=== PATIENT | female | born 1980 | race Caucasian/White ===

== ENCOUNTER 2017-01-03 15:41 | Emergency (ER) | payer OTHER, SELFPAY ==
[2017-01-03] MEDS ORDERED: Sodium Chloride 0.9% 10 ML Syringe FLUSH PRN (16:49)
[2017-01-03] MEDS ORDERED: Sodium Chloride 0.9% 1,000 ML IV ONE (16:49)
[2017-01-03] MEDS ORDERED: Sodium Chloride 0.9% 2.5 ML Syringe FLUSH PRN (16:49)
[2017-01-03] MEDS ORDERED: Ketorolac 30 MG/ML SDV IVPUSH ONE (16:49)
--- NOTE | 2017-01-03 16:52 | EDM.PDOC ---
ED HPI GENERAL MEDICAL PROBLEM - General Chief Complaint: Flank Pain Stated Complaint: PAIN TO LEFT SIDE ABDOMEN AND BACK Time Seen by Provider: 01/03/17 16:43 - History of Present Illness INITIAL COMMENTS - FREE TEXT/NARRATIVE: HISTORY AND PHYSICAL: History of present illness: The patient is a healthy 36-year-old female who presents with complaints of sudden onset of left lower flank pain that radiates to the left lower quadrant of her abdomen 2 hours ago. The patient says that the pain is constant and has not taken anything for it. The pain was Was associated with some nausea which is now gone but no vomiting or diarrhea. She's had no dysuria frequency or hematuria and no GI or history. Her only history is an ovarian cyst that was monitored and dissipated prior to her last . Patient denies currently in the last regular period was December 19. The patient has not had any recent fever chills chest pain or shortness of breath and has had no GI complaints and has been eating and drinking normally. Prior to these events the patient had a normal morning and afternoon. The patient does tell me that she usually gets discomfort when she ovulates and she is concerned it might be that but she says that it's never been this uncomfortable. The patient describes the pain as a sharp dull deep pain Review of systems: As per history of present illness and below otherwise all systems reviewed and negative. Past medical history: As per history of present illness and as reviewed below otherwise noncontributory. Surgical history: As per history of present illness and as reviewed below otherwise noncontributory. Social history: No reported history of drug or alcohol abuse. Family history: As per history of present illness and as reviewed below otherwise noncontributory. Physical exam: Gen.: Well-developed well-nourished female who moves easily in the ED without any distress. Vital signs have been reviewed by me. HEENT: Atraumatic, normocephalic, negative for conjunctival pallor or scleral icterus, mucous membranes moist, throat clear, neck supple, nontender, trachea midline. Lungs: Clear to auscultation, breath sounds equal bilaterally, chest nontender. Heart: S1S2, regular rate and rhythm no overt murmurs Abdomen: Soft, nondistended, there is tenderness at palpation of the right upper right mid and right lower quadrants without rebound or guarding Negative for masses or hepatosplenomegaly. Negative for costovertebral tenderness. Pelvis: Stable nontender. Genitourinary: Deferred. Rectal: Deferred. Extremities: Atraumatic, negative for cords or calf pain. Neurovascular unremarkable. Neuro: Awake, alert, oriented. Cranial nerves II through XII unremarkable. Cerebellum unremarkable. Motor and sensory unremarkable throughout. Exam nonfocal. Diagnostics: CBC CMP UA UCG urine culture if indicated CT scan of the abdomen and pelvis Therapeutics: IV fluids Toradol Patient is aware of all testing results including all the CT scan findings, incidental one gallstone and incidental mesenteric inflammatory changes. I've cautioned her that this small kidney stone within the kidney could try to pass which would increase her pain and things that she should return for. I have advised her for close follow-up with her family practice physician in our clinic in the next several days and she may need to see her urologist the pain persists. I advised her on hydration and will give her some tramadol to use if [id number] Motrin does not work. She Is comfortable with this care plan. Impression: Left kidney stone/renal colic stable Definitive disposition and diagnosis as appropriate pending reevaluation and review of above. Left Flank Pain Score (Numeric/FACES): 10 - Related Data Allergies Allergy/AdvReac Type Severity Reaction Status Date / Time No Known Allergies Allergy Verified 01/03/17 16:13 Home Meds: Home Meds . 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: Psychiatric History: Reports: Depression - Infectious Disease History Infectious Disease History: Reports: Chicken Pox - Past Surgical History HEENT Surgical History: Reports: Oral Surgery Social & Family History - Family History Family Medical History: Noncontributory - Tobacco Use Smoking Status *Q: Never Smoker Second Hand Smoke Exposure: No - Caffeine Use Caffeine Use: Reports: Coffee Other Caffeine Use: quit using coffee the last 3 days - Recreational Drug Use Recreational Drug Use: No - Sexual History Sexual History: Reports: Same Sex Partner, Vaginal [place] - Living Situation & Occupation Living situation: Reports: ED ROS GENERAL - Review of Systems Review Of Systems: ROS reveals no pertinent complaints other than HPI. ED EXAM, GENERAL - Physical Exam Exam: See Below (See dictation) Course - Vital Signs Last Recorded V/S: Last Vital Signs Temp 36.7 C 01/03/17 16:10 Pulse 77 01/03/17 16:10 Resp 16 01/03/17 16:10 BP 140/81 01/03/17 16:10 Pulse Ox 99 01/03/17 16:10 - Orders/Labs/Meds Orders: Active Orders 24 hr Category Date Time Status Abdomen Pelvis wo Cont [CT] Stat Exams 01/03/17 16:49 Taken Sodium Chloride 0.9% [Saline Flush] Med 01/03/17 16:49 Active 10 ml FLUSH ASDIRECTED PRN Sodium Chloride 0.9% [Saline Flush] Med 01/03/17 16:49 Active 2.5 ml FLUSH ASDIRECTED PRN Saline Lock Insert [OM.PC] Stat Oth 01/03/17 16:49 Ordered Medication Orders Sodium Chloride (Saline Flush) 10 ml FLUSH ASDIRECTED PRN PRN Reason: Keep Vein Open Last Admin: 01/03/17 17:15 Dose: 10 ml Sodium Chloride (Saline Flush) 2.5 ml FLUSH ASDIRECTED PRN PRN Reason: Keep Vein Open Last Admin: 01/03/17 17:15 Dose: 2.5 ml Labs: Laboratory Tests 01/03/17 01/03/17 01/03/17 Range/Units 16:16 16:16 17:12 WBC 9.39 (4.0-11.0) K/uL RBC 4.21 L (4.30-5.90) M/uL Hgb 12.7 (12.0-16.0) g/dL Hct 37.2 (36.0-46.0) % MCV 88.4 (80.0-98.0) fL MCH 30.2 (27.0-32.0) pg MCHC 34.1 (31.0-37.0) g/dL RDW Std Deviation 43.3 (28.0-62.0) fl RDW Coeff of Tamiko 14 (11.0-15.0) % Plt Count 297 (150-400) K/uL MPV 10.70 (7.40-12.00) fL Neut % (Auto) 58.5 (48.0-80.0) % Lymph % (Auto) 32.5 (16.0-40.0) % [place] % (Auto) 6.9 (0.0-15.0) % Eos % (Auto) 1.8 (0.0-7.0) % Baso % (Auto) 0.3 (0.0-1.5) % Neut # (Auto) 5.5 (1.4-5.7) K/uL Lymph # (Auto) 3.1 H (0.6-2.4) K/uL [place] # (Auto) 0.7 (0.0-0.8) K/uL Eos # (Auto) 0.2 (0.0-0.7) K/uL Baso # (Auto) 0.0 (0.0-0.1) K/uL Nucleated RBC % 0.0 /100WBC Nucleated RBCs # 0 K/uL Sodium (136-146) mmol/L Potassium (3.5-5.1) mmol/L Chloride (98-110) mmol/L Carbon Dioxide (21-31) mmol/L BUN (6.0-23.0) mg/dL Creatinine (0.6-1.5) mg/dL Est Cr Clr Drug Dosing mL/min Estimated GFR (MDRD) ml/min Glucose (60-110) mg/dL Calcium (8.8-10.8) mg/dL Total Bilirubin (0.1-1.5) mg/dL AST (5-40) IU/L ALT (8-54) IU/L Alkaline Phosphatase (40-150) Total Protein (6.0-8.0) g/dL Albumin (3.5-5.0) g/dL Globulin (2.0-3.5) g/dL Albumin/Globulin Ratio (1.3-2.8) Urine Color YELLOW Urine Appearance CLEAR Urine pH 5.5 (5.0-8.0) Ur Specific [place] >= 1.030 (1.001-1.035) Urine Protein NEGATIVE (NEGATIVE) mg/dL Urine Glucose (UA) NEGATIVE (NEGATIVE) mg/dL Urine Ketones NEGATIVE (NEGATIVE) mg/dL Urine Occult Blood TRACE-LYSED (NEGATIVE) Urine Nitrite NEGATIVE (NEGATIVE) Urine Bilirubin NEGATIVE (NEGATIVE) Urine Urobilinogen 0.2 (<2.0) EU/dL Ur Leukocyte Esterase NEGATIVE (NEGATIVE) Urine RBC 0-1 (0-2/HPF) Urine WBC 0-2 (0-5/HPF) Ur Epithelial Cells FEW (NONE-FEW) Amorphous Sediment FEW (NEGATIVE) Urine Bacteria RARE (NEGATIVE) Urine HCG, Qual NEGATIVE (NEGATIVE) 01/03/17 Range/Units 17:12 WBC (4.0-11.0) K/uL RBC (4.30-5.90) M/uL Hgb (12.0-16.0) g/dL Hct (36.0-46.0) % MCV (80.0-98.0) fL MCH (27.0-32.0) pg MCHC (31.0-37.0) g/dL RDW Std Deviation (28.0-62.0) fl RDW Coeff of Tamiko (11.0-15.0) % Plt Count (150-400) K/uL MPV (7.40-12.00) fL Neut % (Auto) (48.0-80.0) % Lymph % (Auto) (16.0-40.0) % [place] % (Auto) (0.0-15.0) % Eos % (Auto) (0.0-7.0) % Baso % (Auto) (0.0-1.5) % Neut # (Auto) (1.4-5.7) K/uL Lymph # (Auto) (0.6-2.4) K/uL [place] # (Auto) (0.0-0.8) K/uL Eos # (Auto) (0.0-0.7) K/uL Baso # (Auto) (0.0-0.1) K/uL Nucleated RBC % /100WBC Nucleated RBCs # K/uL Sodium 139 (136-146) mmol/L Potassium 3.6 (3.5-5.1) mmol/L Chloride 107 (98-110) mmol/L Carbon Dioxide 24 (21-31) mmol/L BUN 18 (6.0-23.0) mg/dL Creatinine 0.8 (0.6-1.5) mg/dL Est Cr Clr Drug Dosing 89.16 mL/min Estimated GFR (MDRD) > 60.0 ml/min Glucose 110 (60-110) mg/dL Calcium 9.5 (8.8-10.8) mg/dL Total Bilirubin 1.0 (0.1-1.5) mg/dL AST 18 (5-40) IU/L ALT 20 (8-54) IU/L Alkaline Phosphatase 70 (40-150) Total Protein 7.4 (6.0-8.0) g/dL Albumin 4.4 (3.5-5.0) g/dL Globulin 3.0 (2.0-3.5) g/dL Albumin/Globulin Ratio 1.5 (1.3-2.8) Urine Color Urine Appearance Urine pH (5.0-8.0) Ur Specific [place] (1.001-1.035) Urine Protein (NEGATIVE) mg/dL Urine Glucose (UA) (NEGATIVE) mg/dL Urine Ketones (NEGATIVE) mg/dL Urine Occult Blood (NEGATIVE) Urine Nitrite (NEGATIVE) Urine Bilirubin (NEGATIVE) Urine Urobilinogen (<2.0) EU/dL Ur Leukocyte Esterase (NEGATIVE) Urine RBC (0-2/HPF) Urine WBC (0-5/HPF) Ur Epithelial Cells (NONE-FEW) Amorphous Sediment (NEGATIVE) Urine Bacteria (NEGATIVE) Urine HCG, Qual (NEGATIVE) Meds: Medications Generic Name Dose Route Start Last Admin Trade Name Freq PRN Reason Stop Dose Admin Sodium Chloride 10 ml 01/03/17 16:49 01/03/17 17:15 Saline Flush FLUSH 10 ml ASDIRECTED PRN Administration Keep Vein Open Sodium Chloride 2.5 ml 01/03/17 16:49 01/03/17 17:15 Saline Flush FLUSH 2.5 ml ASDIRECTED PRN Administration Keep Vein Open Discontinued Medications Generic Name Dose Route Start Last Admin Trade Name Freq PRN Reason Stop Dose Admin Sodium Chloride 1,000 mls @ 999 mls/hr 01/03/17 16:49 01/03/17 17:15 Normal Saline IV 01/03/17 17:49 999 mls/hr STAT ONE Administration Ketorolac Tromethamine 30 mg 01/03/17 16:49 01/03/17 17:15 Toradol IVPUSH 01/03/17 16:50 30 mg ONETIME ONE Administration Departure - Departure Time of Disposition: 18:49 Disposition: Home, Self-Care 01 Condition: Good Clinical Impression: Renal colic on left side - Discharge Information Referrals: Shahriar Duarte MD [Primary Care Provider] - Forms: ED Department Discharge Additional Instructions: The following information is given to patients seen in the emergency department who are being discharged to home. This information is to outline your options for follow-up care. We provide all patients seen in our emergency department with a follow-up referral. The need for follow-up, as well as the timing and circumstances, are variable depending upon the specifics of your emergency department visit. If you don't have a primary care physician on staff, we will provide you with a referral. We always advise you to contact your personal physician following an emergency department visit to inform them of the circumstance of the visit and for follow-up with them and/or the need for any referrals to a consulting specialist. The emergency department will also refer you to a specialist when appropriate. This referral assures that you have the opportunity for followup care with a specialist. All of these measure are taken in an effort to provide you with optimal care, which includes your followup. Under all circumstances we always encourage you to contact your private physician who remains a resource for coordinating your care. When calling for followup care, please make the office aware that this follow-up is from your recent emergency room visit. If for any reason you are refused follow-up, please contact the [facility] emergency department at and ask to speak to the emergency department charge nurse. [facility] Primary care- Internal Medicine and Family [address] [address] Push hydration and use [id number] Motrin or ibuprofen for pain. Please use tramadol you have been prescribed as you choose and as you need. Please call and follow with her primary care physician for further evaluation of these complaints and return to ER as needed as discussed. - My Orders Last 24 Hours: My Active Orders 01/03/17 16:49 Abdomen Pelvis wo Cont [CT] Stat Sodium Chloride 0.9% [Saline Flush] 10 ml FLUSH ASDIRECTED PRN Sodium Chloride 0.9% [Saline Flush] 2.5 ml FLUSH ASDIRECTED PRN Saline Lock Insert [OM.PC] Stat - Assessment/Plan Last 24 Hours: My Active Orders 01/03/17 16:49 Abdomen Pelvis wo Cont [CT] Stat Sodium Chloride 0.9% [Saline Flush] 10 ml FLUSH ASDIRECTED PRN Sodium Chloride 0.9% [Saline Flush] 2.5 ml FLUSH ASDIRECTED PRN Saline Lock Insert [OM.PC] Stat
[2017-01-03 17:47] LABS: CHLORIDE,CL 107 mmol/L (98-110); SODIUM,NA 139 mmol/L (136-146)
[2017-01-03 19:03] VITALS: BP 124/78
--- NOTE | 2017-01-04 16:36 | CT ---
EXAM DATE: 01/03/17 PATIENT'S AGE: 36 Patient: LAINE CONTRERAS Facility: [place], [place] Site . Site : [id number] Study: CT Abdomen/Pelvis [id number]/6/2017 6:09:34 PM Ordering Physician: Lila Shrestha Final Report: INDICATION: Flank pain. TECHNIQUE: CT abdomen and pelvis without contrast. COMPARISON: None available FINDINGS: Lower chest: Unremarkable. Liver: Unremarkable. Spleen: Unremarkable. Pancreas: Unremarkable. Gallbladder and bile ducts: An apparent small density within the gallbladder on image 56 concerning for cholelithiasis. Adrenal glands: Unremarkable. Kidneys: No hydronephrosis. A 3 millimeter nonobstructive left renal calcification. No discrete ureteral calcifications. GI tract: Unremarkable. Appendix is normal. Vascular structures: Unremarkable. Lymph nodes: No abnormally enlarged lymph nodes. Miscellaneous: Trace fluid in the cul-de-sac. No free air. Mildly increased hazy attenuation in the central mesenteric fat, nonspecific, which could represent mild sclerosing mesenteritis. Pelvic Organs: Unremarkable. Bones: Slight lumbar scoliosis. IMPRESSION: No obstructive uropathy. A 3 millimeter nonobstructive left renal calcification. No discrete ureteral calcifications. Mildly increased hazy attenuation in the central mesenteric fat is nonspecific and could represent mild sclerosing mesenteritis. Suspected cholelithiasis. Dictated by Sanya Leos MD @ 01/03/2017 6:40:41 PM Dictated by: Sanya Leos MD @ 01/03/2017 18:40:47 (Electronic Signature) Report Signed by Proxy. [facility] HOSPITAL[facility]
== END 2017-01-03 19:01 | disposition home or self-care (01) ==
LOC: MW.ED 15:41
DX: N20.0 Calculus of kidney (principal); F32.9 Major depressive disorder, single episode, unspecified
CPT/HCPCS: 74176; 80053; 81001; 81025; 85025; 96361; 96374; 99284; J1885; J7040; 99283

== ENCOUNTER 2018-07-23 16:13 | Observation (INO) | payer BC, OTHER ==
[2018-07-23] MEDS ORDERED: Sodium Chloride 0.9% 1,000 ML IV ONE (16:32)
[2018-07-23] MEDS ORDERED: Ondansetron 4 MG/2 ML SDV IVPUSH ONE ×2 (16:32→18:03)
[2018-07-23] MEDS ORDERED: Morphine 2 MG/ML Syringe IVPUSH ONE (16:32)
--- NOTE | 2018-07-23 16:35 | EDM.PDOC ---
ED HPI GENERAL MEDICAL PROBLEM - General Chief Complaint: Flank Pain Stated Complaint: 15WKS PG LOWER BACK LANCE Time Seen by Provider: 07/23/18 16:26 - History of Present Illness INITIAL COMMENTS - FREE TEXT/NARRATIVE: HISTORY AND PHYSICAL: History of present illness: Patient's a 38-year-old white female who is approximately 15 weeks presents with a concern of acute left flank pain with associated nausea and vomiting she did have a similar episode in 2017 and was diagnosed with urolithiasis. She denies fever chills she denies vaginal bleeding discharge Review of systems: As per history of present illness and below otherwise all systems reviewed and negative. Past medical history: As per history of present illness and as reviewed below otherwise noncontributory. Surgical history: As per history of present illness and as reviewed below otherwise noncontributory. Social history: No reported history of drug or alcohol abuse. Family history: As per history of present illness and as reviewed below otherwise noncontributory. Physical exam: HEENT: Atraumatic, normocephalic, pupils reactive, negative for conjunctival pallor or scleral icterus, mucous membranes moist, throat clear, neck supple, nontender, trachea midline. Lungs: Clear to auscultation, breath sounds equal bilaterally, chest nontender. Heart: S1S2, regular, negative for clicks, rubs, or JVD. Abdomen: SoGravid uterus noted consistent with dates nontenderNegative for masses or hepatosplenomegaly. left-sidedostovertebral tenderness. Pelvis: Stable nontender. Genitourinary: Deferred. Rectal: Deferred. Extremities: Atraumatic, negative for cords or calf pain. Neurovascular unremarkable. Neuro: Awake, alert, oriented. Cranial nerves II through XII unremarkable. Cerebellum unremarkable. Motor and sensory unremarkable throughout. Exam nonfocal. Diagnostics: CBC CMP UA second trimester ultrasound retroperitoneal ultrasound Therapeutics: Saline 1 L bolus morphine sulfate 2 mg IV Zofran 4 mg IV Impression: #1 second trimester intrauterine #2 acute left flank pain Definitive disposition and diagnosis as appropriate pending reevaluation and review of above. - Related Data Allergies Allergy/AdvReac Type Severity Reaction Status Date / Time No Known Allergies Allergy Verified 07/23/18 16:35 Home Meds: Home Meds . 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: Psychiatric History: Reports: Depression - Infectious Disease History Infectious Disease History: Reports: Chicken Pox - Past Surgical History HEENT Surgical History: Reports: Oral Surgery Social & Family History - Family History Family Medical History: Noncontributory - Caffeine Use Caffeine Use: Reports: Coffee Other Caffeine Use: quit using coffee the last 3 days - Sexual History Sexual History: Reports: Same Sex Partner, Vaginal [place] - Living Situation & Occupation Living situation: Reports: ED ROS GENERAL - Review of Systems Review Of Systems: ROS reveals no pertinent complaints other than HPI. ED EXAM, GENERAL - Physical Exam Exam: See Below (See dictation) Course - Vital Signs Last Recorded V/S: Last Vital Signs Temp 36.4 C 07/23/18 19:29 Pulse 79 07/23/18 19:29 Resp 22 H 07/23/18 19:29 BP 143/85 H 07/23/18 19:29 Pulse Ox 98 07/23/18 19:29 - Orders/Labs/Meds Orders: Active Orders 24 hr Category Date Time Status Patient Status [ADT] Stat ADT 07/23/18 20:00 Active Retroperitoneal Ltd [US] Stat Exams 07/23/18 16:31 Taken CULTURE URINE [RM] Stat Lab 07/23/18 17:54 Received cefTRIAXone [Rocephin] 1 gm Med 07/23/18 19:58 Active Sodium Chloride 0.9% [Normal Saline] 50 ml IV ONETIME Medication Orders Ceftriaxone Sodium 1 gm/ (Sodium Chloride) 50 mls @ 200 mls/hr IV ONETIME ONE Stop: 07/23/18 20:12 Labs: Laboratory Tests 07/23/18 07/23/18 07/23/18 Range/Units 16:42 16:42 17:54 WBC 8.58 (4.0-11.0) K/uL RBC 3.87 L (4.30-5.90) M/uL Hgb 11.6 L (12.0-16.0) g/dL Hct 33.7 L (36.0-46.0) % MCV 87.1 (80.0-98.0) fL MCH 30.0 (27.0-32.0) pg MCHC 34.4 (31.0-37.0) g/dL RDW Std Deviation 42.0 (28.0-62.0) fl RDW Coeff of Tamiko 13 (11.0-15.0) % Plt Count 235 (150-400) K/uL MPV 9.80 (7.40-12.00) fL Neut % (Auto) 51.7 (48.0-80.0) % Lymph % (Auto) 40.1 H (16.0-40.0) % [place] % (Auto) 5.5 (0.0-15.0) % Eos % (Auto) 2.6 (0.0-7.0) % Baso % (Auto) 0.1 (0.0-1.5) % Neut # (Auto) 4.4 (1.4-5.7) K/uL Lymph # (Auto) 3.4 H (0.6-2.4) K/uL [place] # (Auto) 0.5 (0.0-0.8) K/uL Eos # (Auto) 0.2 (0.0-0.7) K/uL Baso # (Auto) 0.0 (0.0-0.1) K/uL Nucleated RBC % 0.0 /100WBC Nucleated RBCs # 0 K/uL Sodium 140 (136-145) mmol/L Potassium 3.8 (3.5-5.1) mmol/L Chloride 105 (98-107) mmol/L Carbon Dioxide 24.8 (21.0-32.0) mmol/L BUN 13 (7.0-18.0) mg/dL Creatinine 0.7 (0.6-1.0) mg/dL Est Cr Clr Drug Dosing TNP Estimated GFR (MDRD) > 60.0 ml/min Glucose 96 (74-106) mg/dL Calcium 9.5 (8.5-10.1) mg/dL Total Bilirubin 0.3 (0.2-1.0) mg/dL AST 18 (15-37) IU/L ALT 32 (14-63) IU/L Alkaline Phosphatase 55 (46-116) U/L Total Protein 7.5 (6.4-8.2) g/dL Albumin 3.2 L (3.4-5.0) g/dL Globulin 4.3 H (2.6-4.0) g/dL Albumin/Globulin Ratio 0.7 L (0.9-1.6) Urine Color YELLOW Urine Appearance CLEAR Urine pH 5.5 (5.0-8.0) Ur Specific [place] >= 1.030 (1.001-1.035) Urine Protein TRACE H (NEGATIVE) mg/dL Urine Glucose (UA) NEGATIVE (NEGATIVE) mg/dL Urine Ketones NEGATIVE (NEGATIVE) mg/dL Urine Occult Blood MODERATE H (NEGATIVE) Urine Nitrite NEGATIVE (NEGATIVE) Urine Bilirubin NEGATIVE (NEGATIVE) Urine Urobilinogen 0.2 (<2.0) EU/dL Ur Leukocyte Esterase MODERATE H (NEGATIVE) Urine RBC 8-16 (0-2/HPF) Urine WBC 6-12 (0-5/HPF) Ur Epithelial Cells FEW (NONE-FEW) Amorphous Sediment FEW (NEGATIVE) Urine Bacteria FEW (NEGATIVE) Urine Mucus FEW (NONE-MOD) Meds: Medications Generic Name Dose Route Start Last Admin Trade Name Freq PRN Reason Stop Dose Admin Ceftriaxone Sodium 1 gm/ 50 mls @ 200 mls/hr 07/23/18 19:58 Sodium Chloride IV 07/23/18 20:12 ONETIME ONE Discontinued Medications Generic Name Dose Route Start Last Admin Trade Name Freq PRN Reason Stop Dose Admin Sodium Chloride 1,000 mls @ 999 mls/hr 07/23/18 16:32 07/23/18 17:26 Normal Saline IV 07/23/18 17:32 999 mls/hr STAT ONE Administration Ceftriaxone Sodium 1 gm/ 50 mls @ 100 mls/hr 07/23/18 19:52 Sodium Chloride IV 07/23/18 20:21 ONETIME ONE Morphine Sulfate 2 mg 07/23/18 16:32 07/23/18 17:28 Morphine IVPUSH 07/23/18 16:33 2 mg ONETIME ONE Administration Ondansetron HCl 4 mg 07/23/18 16:32 07/23/18 17:25 Zofran IVPUSH 07/23/18 16:33 4 mg ONETIME ONE Administration Ondansetron HCl 4 mg 07/23/18 18:03 07/23/18 18:08 Zofran IVPUSH 07/23/18 18:04 4 mg ONETIME ONE Administration Departure - Departure Time of Disposition: 20:02 Disposition: Refer to Observation Condition: Good Clinical Impression: Flank pain, Second trimester , UTI, Urinary tract infectious disease - Discharge Information Referrals: Shahriar Duarte MD [Primary Care Provider] - Forms: ED Department Discharge - My Orders Last 24 Hours: My Active Orders 07/23/18 16:31 Retroperitoneal Ltd [US] Stat 07/23/18 17:54 CULTURE URINE [RM] Stat 07/23/18 19:58 cefTRIAXone [Rocephin] 1 gm Sodium Chloride 0.9% [Normal Saline] 50 ml IV ONETIME 07/23/18 20:00 Patient Status [ADT] Stat - Assessment/Plan Last 24 Hours: My Active Orders 07/23/18 16:31 Retroperitoneal Ltd [US] Stat 07/23/18 17:54 CULTURE URINE [RM] Stat 07/23/18 19:58 cefTRIAXone [Rocephin] 1 gm Sodium Chloride 0.9% [Normal Saline] 50 ml IV ONETIME 07/23/18 20:00 Patient Status [ADT] Stat
[2018-07-23 17:13] LABS: CHLORIDE,CL 105 mmol/L (98-107); SODIUM,NA 140 mmol/L (136-145)
--- NOTE | 2018-07-23 18:10 | US ---
INDICATION: Left back and flank pain, nausea and vomiting, approximately 15 weeks TECHNIQUE: Ultrasound OB pelvis transabdominal. Real-time portillo-scale and color Doppler imaging of the fetus and maternal kidneys was performed. COMPARISON: None FINDINGS: Sonographic imaging demonstrates a single living intrauterine gestation. Fetus demonstrates a regular cardiac rate of 147 beats per minute. Fetus has a cephalic orientation. The placenta lies anterior without evidence of placenta previa. Amniotic fluid volume appears normal. Cervical length is 3.4 cm. The composite ultrasound gestational age is calculated at 16 weeks 2 days with an estimated sonographic due date of January 05, 2019. The estimated weight is 147 grams which lies at the 80.5 %. The following biometric measurements were obtained: Biparietal diameter: 3.4 cm/16 weeks 4 days Head circumference: 12.3 cm/16 weeks 1 day Abdominal circumference: 10.4 cm/16 weeks 3 days Femur length: 2.0 cm/16 weeks 0 days Evaluation of both kidneys demonstrates normal renal size, no hydronephrosis or renal stone. IMPRESSION: 1.Single viable intrauterine . Gestational age is calculated at 16 weeks 2 days with estimated due date of January 05, 2019. 2.No hydronephrosis or renal stone. Dictated by Nena Patton MD @ Jul 23 2018 6:01PM Signed by Dr. Nena Patton @ Jul 23 2018 6:08PM
[2018-07-23] MEDS ORDERED: cefTRIAXone 1 GM in Sodium Chloride 0.9% 50 ML IV ONE ×2 (19:52→19:58)
[2018-07-23] MEDS ORDERED: cefTRIAXone 1 GM in Premix Bag 1 BAG IV ONE (20:04)
[2018-07-23] MEDS ORDERED: Ondansetron 4 MG/2 ML SDV IVPUSH PRN (21:11)
[2018-07-23] MEDS ORDERED: Sodium Chloride 0.9% 1,000 ML IV SCH (21:15)
[2018-07-23] MEDS: Morphine 4 MG/ML Syringe IVPUSH PRN (22:30)
[2018-07-24] MEDS: Morphine 4 MG/ML Syringe IVPUSH PRN (01:07)
--- NOTE | 2018-07-24 08:57 | PCM.HP ---
H&P History of Present Illness - General Date of Service: 07/24/18 Admit Problem/Dx: Admission Diagnosis/Problem Admission Diagnosis/Problem Flank pain 38 yo EDC 01/10/2019 15 5/7wks came in last evening due to severe left side flank pain. Admit for ops overnight for pain mngmt Source of Information: Patient History Limitations: Reports: No Limitations - History of Present Illness Onset of Symptoms: Reports: Sudden Symptom Onset Date: 07/23/18 Location: Reports: Back Quality: Reports: Stabbing, Throbbing Improves with: Reports: None Worsens with: Reports: None Associated Symptoms: Reports: No Other Symptoms Right Flank Pain Score (Numeric/FACES): 5 - Related Data Allergies/Adverse Reactions: Allergies Allergy/AdvReac Type Severity Reaction Status Date / Time No Known Allergies Allergy Verified 07/23/18 16:35 Home Medications: Home Meds . 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: Psychiatric History: Reports: Depression - Infectious Disease History Infectious Disease History: Reports: Chicken Pox - Past Surgical History HEENT Surgical History: Reports: Oral Surgery Social & Family History - Family History Family Medical History: Noncontributory - Tobacco Use Smoking Status *Q: Former Smoker Years of Tobacco use: 2 Used Tobacco, but Quit: Yes Month/Year Tobacco Last Used: 2008 Second Hand Smoke Exposure: No - Caffeine Use Caffeine Use: Reports: Coffee Other Caffeine Use: quit using coffee the last 3 days - Recreational Drug Use Recreational Drug Use: No - Sexual History Sexual History: Reports: Same Sex Partner, Vaginal [place] - Living Situation & Occupation Living situation: Reports: H&P Review of Systems - Review of Systems: Review Of Systems: See Below General: Reports: No Symptoms. Denies: Fever HEENT: Reports: No Symptoms Pulmonary: Reports: No Symptoms Cardiovascular: Reports: No Symptoms Gastrointestinal: Reports: No Symptoms Genitourinary: Reports: No Symptoms, Flank Pain, Other (difficulty urinating) Musculoskeletal: Reports: No Symptoms Skin: Reports: No Symptoms, Rash Psychiatric: Reports: No Symptoms Neurological: Reports: No Symptoms Hematologic/Lymphatic: Reports: No Symptoms Immunologic: Reports: No Symptoms Exam - Exam Exam: See Below - Vital Signs Vital Signs: Last Vital Signs Temp 36.6 C 07/24/18 04:52 Pulse 86 07/24/18 04:52 Resp 18 07/24/18 04:52 BP 128/84 07/24/18 04:52 Pulse Ox 98 07/24/18 04:52 Weight: 89.448 kg - Exam General: Alert, Oriented, Cooperative, Mild Distress HEENT: Hearing Intact Lungs: Clear to Auscultation, Normal Respiratory Effort Cardiovascular: Regular Rate, Regular Rhythm, Normal S1, Normal S2 (Female) Exam: Deferred Rectal (Female) Exam: Deferred Back Exam: Normal Inspection, Full Range of Motion, CVA Tenderness (L). No: CVA Tenderness (R) Extremities: Normal Inspection, Normal Range of Motion, Non-Tender, No Pedal Edema, Normal Capillary Refill Skin: Warm, Dry, Intact Neurological: Cranial Nerves Intact, Reflexes Equal Bilateral, Normal Speech, Normal Tone, Sensation Intact Neuro Extensive - Mental Status: Alert, Oriented x3, Normal Mood/Affect, Normal Cognition, Memory Intact Psychiatric: Alert, Normal Affect, Normal Mood - Patient Data Lab Results Last 24 hrs: Laboratory Results - last 24 hr 07/23/18 07/23/18 07/23/18 Range/Units 16:42 16:42 17:54 WBC 8.58 (4.0-11.0) K/uL RBC 3.87 L (4.30-5.90) M/uL Hgb 11.6 L (12.0-16.0) g/dL Hct 33.7 L (36.0-46.0) % MCV 87.1 (80.0-98.0) fL MCH 30.0 (27.0-32.0) pg MCHC 34.4 (31.0-37.0) g/dL RDW Std Deviation 42.0 (28.0-62.0) fl RDW Coeff of Tamiko 13 (11.0-15.0) % Plt Count 235 (150-400) K/uL MPV 9.80 (7.40-12.00) fL Neut % (Auto) 51.7 (48.0-80.0) % Lymph % (Auto) 40.1 H (16.0-40.0) % [place] % (Auto) 5.5 (0.0-15.0) % Eos % (Auto) 2.6 (0.0-7.0) % Baso % (Auto) 0.1 (0.0-1.5) % Neut # (Auto) 4.4 (1.4-5.7) K/uL Lymph # (Auto) 3.4 H (0.6-2.4) K/uL [place] # (Auto) 0.5 (0.0-0.8) K/uL Eos # (Auto) 0.2 (0.0-0.7) K/uL Baso # (Auto) 0.0 (0.0-0.1) K/uL Nucleated RBC % 0.0 /100WBC Nucleated RBCs # 0 K/uL Sodium 140 (136-145) mmol/L Potassium 3.8 (3.5-5.1) mmol/L Chloride 105 (98-107) mmol/L Carbon Dioxide 24.8 (21.0-32.0) mmol/L BUN 13 (7.0-18.0) mg/dL Creatinine 0.7 (0.6-1.0) mg/dL Est Cr Clr Drug Dosing TNP Estimated GFR (MDRD) > 60.0 ml/min Glucose 96 (74-106) mg/dL Calcium 9.5 (8.5-10.1) mg/dL Total Bilirubin 0.3 (0.2-1.0) mg/dL AST 18 (15-37) IU/L ALT 32 (14-63) IU/L Alkaline Phosphatase 55 (46-116) U/L Total Protein 7.5 (6.4-8.2) g/dL Albumin 3.2 L (3.4-5.0) g/dL Globulin 4.3 H (2.6-4.0) g/dL Albumin/Globulin Ratio 0.7 L (0.9-1.6) Urine Color YELLOW Urine Appearance CLEAR Urine pH 5.5 (5.0-8.0) Ur Specific [place] >= 1.030 (1.001-1.035) Urine Protein TRACE H (NEGATIVE) mg/dL Urine Glucose (UA) NEGATIVE (NEGATIVE) mg/dL Urine Ketones NEGATIVE (NEGATIVE) mg/dL Urine Occult Blood MODERATE H (NEGATIVE) Urine Nitrite NEGATIVE (NEGATIVE) Urine Bilirubin NEGATIVE (NEGATIVE) Urine Urobilinogen 0.2 (<2.0) EU/dL Ur Leukocyte Esterase MODERATE H (NEGATIVE) Urine RBC 8-16 (0-2/HPF) Urine WBC 6-12 (0-5/HPF) Ur Epithelial Cells FEW (NONE-FEW) Amorphous Sediment FEW (NEGATIVE) Urine Bacteria FEW (NEGATIVE) Urine Mucus FEW (NONE-MOD) Result Diagrams: 07/23/18 16:42 07/23/18 16:42 - Problem List (1) Flank pain SNOMED Code(s): 830356747 ICD Code: R10.9 - UNSPECIFIED ABDOMINAL PAIN Status: Acute Priority: High Current Visit: Yes (2) Second trimester SNOMED Code(s): 95115270 ICD Code: Z34.92 - ENCNTR FOR SUPRVSN OF NORMAL PREG, UNSP, SECOND TRIMESTER Status: Acute Priority: High Current Visit: Yes (3) Renal colic on left side SNOMED Code(s): 5189690 ICD Code: N23 - UNSPECIFIED RENAL COLIC Status: Acute Priority: High Current Visit: No Problem List Initiated/Reviewed/Updated: Yes Orders Last 24hrs: Active Orders 24 hr Category Date Time Status Patient Status [ADT] Stat ADT 07/23/18 20:00 Active Bedrest Bathroom Privileges [RC] ASDIRECTED Care 07/23/18 21:14 Active Regular Diet [DIET] Diet 07/24/18 Breakfast Active Retroperitoneal Ltd [US] Stat Exams 07/23/18 16:31 Taken CULTURE URINE [RM] Stat Lab 07/23/18 17:54 Received Morphine Sulfate Med 07/24/18 07:45 Active 4 mg IV Q2H PRN Ondansetron [Zofran] Med 07/23/18 21:11 Active 4 mg IVPUSH Q4H PRN Sodium Chloride 0.9% [Normal Saline] 1,000 ml Med 07/23/18 21:15 Active IV ASDIRECTED Medication Orders Sodium Chloride (Normal Saline) 1,000 mls @ 125 mls/hr IV ASDIRECTED WINSOME Last Admin: 07/23/18 22:40 Dose: 125 mls/hr Morphine Sulfate (Morphine Sulfate) 4 mg IV Q2H PRN PRN Reason: Pain Ondansetron HCl (Zofran) 4 mg IVPUSH Q4H PRN PRN Reason: Nausea/Vomiting Assessment/Plan Comment:: A: 38 yo EDC 01/10/2019 15 5/7wks came in last evening due to severe left side flank pain. Admit for ops overnight for pain mngmt P: doing much better this morning. Will discharge home. Follow up 08/06/18 or sooner if needed.
--- NOTE | 2018-07-24 08:59 | PCM.DCSUM1 ---
Discharge Summary - Hospital Course Free Text/Narrative:: Discharge home. Follow up 08/06/18 or sooner - Discharge Data Discharge Date: 07/24/18 Discharge Disposition: Home, Self-Care 01 Condition: Fair - Discharge Diagnosis/Problem(s) (1) Flank pain SNOMED Code(s): 395698716 ICD Code: R10.9 - UNSPECIFIED ABDOMINAL PAIN Status: Acute Priority: High Current Visit: Yes (2) Second trimester SNOMED Code(s): 85685224 ICD Code: Z34.92 - ENCNTR FOR SUPRVSN OF NORMAL PREG, UNSP, SECOND TRIMESTER Status: Acute Priority: High Current Visit: Yes (3) Renal colic on left side SNOMED Code(s): 4814753 ICD Code: N23 - UNSPECIFIED RENAL COLIC Status: Acute Priority: High Current Visit: No - Patient Instructions Diet: Usual Diet as Tolerated Activity: As Tolerated, Rest and Relax Today Driving: May Drive Today Showering/Bathing: May Shower Notify Provider of: Fever, Increased Pain, Nausea and/or Vomiting - Discharge Plan *PRESCRIPTION DRUG MONITORING PROGRAM REVIEWED*: Not Applicable *COPY OF PRESCRIPTION DRUG MONITORING REPORT IN PATIENT JORDY: Not Applicable Home Medications: Home Meds . [No Known Home Meds] 01/03/17 [History] Oxygen Therapy Mode: Room Air Forms: ED Department Discharge Referrals: Shahriar Duarte MD [Primary Care Provider] - - Discharge Summary/Plan Comment DC Time >30 min.: Yes - General Info Date of Service: 07/24/18 Admission Dx/Problem (Free Text: Admission Diagnosis/Problem Admission Diagnosis/Problem Flank pain 38 yo EDC 01/10/2019 15 5/7wks came in last evening due to severe left side flank pain. Admit for ops overnight for pain mngmt Functional Status: Reports: Pain Controlled, Tolerating Diet, Ambulating, Urinating - Review of Systems General: Reports: No Symptoms HEENT: Reports: No Symptoms Pulmonary: Reports: No Symptoms Cardiovascular: Reports: No Symptoms Gastrointestinal: Reports: No Symptoms Genitourinary: Reports: No Symptoms Musculoskeletal: Reports: No Symptoms Skin: Reports: No Symptoms Neurological: Reports: No Symptoms Psychiatric: Reports: No Symptoms - Patient Data Vitals - Most Recent: Last Vital Signs Temp 36.6 C 07/24/18 04:52 Pulse 86 07/24/18 04:52 Resp 18 07/24/18 04:52 BP 128/84 07/24/18 04:52 Pulse Ox 98 07/24/18 04:52 Weight - Most Recent: 89.448 kg I&O - Last 24 hours: Intake & Output 07/23/18 07/24/18 07/24/18 22:59 06:59 14:59 Intake Total 400 Output Total 500 Balance -100 Lab Results - Last 24 hrs: Laboratory Results - last 24 hr 07/23/18 07/23/18 07/23/18 Range/Units 16:42 16:42 17:54 WBC 8.58 (4.0-11.0) K/uL RBC 3.87 L (4.30-5.90) M/uL Hgb 11.6 L (12.0-16.0) g/dL Hct 33.7 L (36.0-46.0) % MCV 87.1 (80.0-98.0) fL MCH 30.0 (27.0-32.0) pg MCHC 34.4 (31.0-37.0) g/dL RDW Std Deviation 42.0 (28.0-62.0) fl RDW Coeff of Tamiko 13 (11.0-15.0) % Plt Count 235 (150-400) K/uL MPV 9.80 (7.40-12.00) fL Neut % (Auto) 51.7 (48.0-80.0) % Lymph % (Auto) 40.1 H (16.0-40.0) % Terry % (Auto) 5.5 (0.0-15.0) % Eos % (Auto) 2.6 (0.0-7.0) % Baso % (Auto) 0.1 (0.0-1.5) % Neut # (Auto) 4.4 (1.4-5.7) K/uL Lymph # (Auto) 3.4 H (0.6-2.4) K/uL Terry # (Auto) 0.5 (0.0-0.8) K/uL Eos # (Auto) 0.2 (0.0-0.7) K/uL Baso # (Auto) 0.0 (0.0-0.1) K/uL Nucleated RBC % 0.0 /100WBC Nucleated RBCs # 0 K/uL Sodium 140 (136-145) mmol/L Potassium 3.8 (3.5-5.1) mmol/L Chloride 105 (98-107) mmol/L Carbon Dioxide 24.8 (21.0-32.0) mmol/L BUN 13 (7.0-18.0) mg/dL Creatinine 0.7 (0.6-1.0) mg/dL Est Cr Clr Drug Dosing TNP Estimated GFR (MDRD) > 60.0 ml/min Glucose 96 (74-106) mg/dL Calcium 9.5 (8.5-10.1) mg/dL Total Bilirubin 0.3 (0.2-1.0) mg/dL AST 18 (15-37) IU/L ALT 32 (14-63) IU/L Alkaline Phosphatase 55 (46-116) U/L Total Protein 7.5 (6.4-8.2) g/dL Albumin 3.2 L (3.4-5.0) g/dL Globulin 4.3 H (2.6-4.0) g/dL Albumin/Globulin Ratio 0.7 L (0.9-1.6) Urine Color YELLOW Urine Appearance CLEAR Urine pH 5.5 (5.0-8.0) Ur Specific [place] >= 1.030 (1.001-1.035) Urine Protein TRACE H (NEGATIVE) mg/dL Urine Glucose (UA) NEGATIVE (NEGATIVE) mg/dL Urine Ketones NEGATIVE (NEGATIVE) mg/dL Urine Occult Blood MODERATE H (NEGATIVE) Urine Nitrite NEGATIVE (NEGATIVE) Urine Bilirubin NEGATIVE (NEGATIVE) Urine Urobilinogen 0.2 (<2.0) EU/dL Ur Leukocyte Esterase MODERATE H (NEGATIVE) Urine RBC 8-16 (0-2/HPF) Urine WBC 6-12 (0-5/HPF) Ur Epithelial Cells FEW (NONE-FEW) Amorphous Sediment FEW (NEGATIVE) Urine Bacteria FEW (NEGATIVE) Urine Mucus FEW (NONE-MOD) Med Orders - Current: Current Medications Sodium Chloride (Normal Saline) 1,000 mls @ 125 mls/hr IV ASDIRECTED [facility] Last Admin: 07/23/18 22:40 Dose: 125 mls/hr Morphine Sulfate (Morphine Sulfate) 4 mg IV Q2H PRN PRN Reason: Pain Ondansetron HCl (Zofran) 4 mg IVPUSH Q4H PRN PRN Reason: Nausea/Vomiting Discontinued Medications Sodium Chloride (Normal Saline) 1,000 mls @ 999 mls/hr IV STAT ONE Stop: 07/23/18 17:32 Last Admin: 07/23/18 17:26 Dose: 999 mls/hr Ceftriaxone Sodium 1 gm/ (Sodium Chloride) 50 mls @ 100 mls/hr IV ONETIME ONE Stop: 07/23/18 20:21 Last Admin: 07/23/18 20:19 Dose: Not Given Ceftriaxone Sodium/Dextrose 1 (gm/ Premix) 50 mls @ 100 mls/hr IV ONETIME ONE Stop: 07/23/18 20:33 Last Admin: 07/23/18 20:11 Dose: 100 mls/hr Morphine Sulfate (Morphine) 2 mg IVPUSH ONETIME ONE Stop: 07/23/18 16:33 Last Admin: 07/23/18 17:28 Dose: 2 mg Morphine Sulfate (Morphine) 4 mg IVPUSH Q2H PRN PRN Reason: Pain Last Admin: 07/24/18 01:07 Dose: 4 mg Ondansetron HCl (Zofran) 4 mg IVPUSH ONETIME ONE Stop: 07/23/18 16:33 Last Admin: 07/23/18 17:25 Dose: 4 mg Ondansetron HCl (Zofran) 4 mg IVPUSH ONETIME ONE Stop: 07/23/18 18:04 Last Admin: 07/23/18 18:08 Dose: 4 mg - Exam General: Reports: Alert, Oriented, Cooperative, No Acute Distress Lungs: Reports: Clear to Auscultation, Normal Respiratory Effort Cardiovascular: Reports: Regular Rate, Regular Rhythm, No Murmurs (Female) Exam: Deferred Rectal (Female) Exam: Deferred Back Exam: Reports: Normal Inspection, Full Range of Motion Skin: Reports: Warm, Dry, Intact Neurological: Reports: No New Focal Deficit, Normal Speech, Normal Tone, Strength Equal Bilateral Psy/Mental Status: Reports: Alert, Normal Affect, Normal Mood
[2018-07-24 09:32] VITALS: BP 125/70
--- NOTE | 2018-07-24 11:41 | US ---
EXAM DATE: 07/23/18 PATIENT'S AGE: 38 Patient: LAINE CONTRERAS Facility: [facility] Site . Site : [id number] Study: US-OB Pelvis [id number]/26/2019 5:22:56 PM Ordering Physician: Emmanuel Lovell Final Report: INDICATION: Left back and flank pain, nausea and vomiting, approximately 15 weeks TECHNIQUE: Ultrasound OB pelvis transabdominal. Real-time portillo-scale and color Doppler imaging of the fetus and maternal kidneys was performed. COMPARISON: None FINDINGS: Sonographic imaging demonstrates a single living intrauterine gestation. Fetus demonstrates a regular cardiac rate of 147 beats per minute. Fetus has a cephalic orientation. The placenta lies anterior without evidence of placenta previa. Amniotic fluid volume appears normal. Cervical length is 3.4 cm. The composite ultrasound gestational age is calculated at 16 weeks 2 days with an estimated sonographic due date of January 05, 2019. The estimated weight is 147 grams which lies at the 80.5 %. The following biometric measurements were obtained: Biparietal diameter: 3.4 cm/16 weeks 4 days Head circumference: 12.3 cm/16 weeks 1 day Abdominal circumference: 10.4 cm/16 weeks 3 days Femur length: 2.0 cm/16 weeks 0 days Evaluation of both kidneys demonstrates normal renal size, no hydronephrosis or renal stone. IMPRESSION: 1.Single viable intrauterine . Gestational age is calculated at 16 weeks 2 days with estimated due date of January 05, 2019. 2.No hydronephrosis or renal stone. Dictated by Nena Patton MD @ Jul 23 2018 6:01PM Signed by: Nena Patton MD @07/23/2018 6:08:44 PM (Electronic Signature) Report Signed by Proxy. JOYCE
== END 2018-07-24 10:23 | disposition home or self-care (01) ==
LOC: MW.ED 16:13 → MW.MS 20:13
PROVIDERS: ADMIT Obstetrics & Gynecology; ATTEND Obstetrics & Gynecology
DX: O26.832 Pregnancy related renal disease, second trimester (principal); N23 Unspecified renal colic; Z87.891 Personal history of nicotine dependence; Z3A.15 15 weeks gestation of pregnancy
CPT/HCPCS: 36415; 76775; 76815; 80053; 81001; 85025; 87086; 96361; 96365; 96375; 96376; 99285; G0378; J0696; J2270; J2405; J7040

== ENCOUNTER 2018-12-29 07:14 | Inpatient (IN) | payer BC ==
[2018-12-29] MEDS ORDERED: Carboprost Tromethamine 250 MCG/1 ML Amp IM PRN (09:59)
[2018-12-29] MEDS ORDERED: Sodium Chloride 0.9% 10 ML Syringe FLUSH PRN (09:59)
[2018-12-29] MEDS ORDERED: Tranexamic Acid 1,000 MG in Sodium Chloride 0.9% 100 ML IV PRN (09:59)
[2018-12-29] MEDS ORDERED: Nalbuphine 10 MG/1 ML Vial IVPUSH PRN (09:59)
[2018-12-29] MEDS ORDERED: Misoprostol 200 MCG Tab PO PRN (09:59)
[2018-12-29] MEDS ORDERED: Sodium Chloride 0.9% 2.5 ML Syringe FLUSH PRN (09:59)
[2018-12-29] MEDS ORDERED: Lidocaine 1% 50 ML MDV INJECT PRN (09:59)
[2018-12-29] MEDS ORDERED: Water For Irrigation,Sterile 1,000 ML Container IRR PRN (09:59)
[2018-12-29] MEDS ORDERED: Methylergonovine 0.2 MG/1 ML Amp IM PRN (09:59)
[2018-12-29] MEDS ORDERED: Sodium Chloride 0.9% 10 ML SDV IV PRN (09:59)
[2018-12-29] MEDS ORDERED: Oxytocin/0.9 % Sodium Chloride 30 UNIT/500 ML BAG IV SCH ×2 (10:00→21:15)
[2018-12-29] MEDS ORDERED: Misoprostol 25 MCG (1/4 of 100 MCG) Tab PO ONE ×2 (10:30→14:30)
--- NOTE | 2018-12-29 11:31 | PCM.LDHP ---
L&D History of Present Illness - General Date of Service: 12/29/18 Admit Problem/Dx: Patient Status Order with Admit Dx/Problem 12/29/18 07:20 Patient Status [ADT] Routine 12/29/18 09:59 Patient Status [ADT] Routine Admission Diagnosis/Problem Admission Diagnosis/Problem - planned 12/29/18 11:26 38yo EDC 01/10/2019 38 2/7wks, AMA 38yo, SROM at 0630, A+, RI, GBS neg. 12/29/18 11:34 Source of Information: Patient History Limitations: Reports: No Limitations - History of Present Illness Improves with: Reports: None Worsens with: Reports: None Associated Symptoms: Reports: N - Related Data Allergies/Adverse Reactions: Allergies Allergy/AdvReac Type Severity Reaction Status Date / Time No Known Allergies Allergy Verified 07/23/18 16:35 Home Medications: Home Meds Pnv No.95/Ferrous Fum/Folic AC [ Caplet] 1 tab PO DAILY 12/29/18 [ History] Past Medical History - Past Health History Medical/Surgical History: Denies Medical/Surgical History 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: , 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 Psychiatric History: Reports: Depression - Infectious Disease History Infectious Disease History: Reports: Chicken Pox - Past Surgical History HEENT Surgical History: Reports: Oral Surgery Social & Family History - Family History Family Medical History: Noncontributory - Caffeine Use Caffeine Use: Reports: Coffee Other Caffeine Use: quit using coffee the last 3 days - Sexual History Sexual History: Reports: Same Sex Partner, Vaginal [place] - Living Situation & Occupation Living situation: Reports: H&P Review of Systems - Review of Systems: Review Of Systems: See Below General: Reports: No Symptoms HEENT: Reports: No Symptoms Pulmonary: Reports: No Symptoms Cardiovascular: Reports: No Symptoms Gastrointestinal: Reports: No Symptoms Genitourinary: Reports: No Symptoms Musculoskeletal: Reports: No Symptoms Skin: Reports: No Symptoms Psychiatric: Reports: No Symptoms Neurological: Reports: No Symptoms Hematologic/Lymphatic: Reports: No Symptoms Immunologic: Reports: No Symptoms L&D Exam - Exam Exam: See Below - Vital Signs Weight: 95.708 kg - OB Specific Contraction Intensity: Mild Movement: Active Heart Tones: Present Heart Tones per Min: 130 Heart Rate (FHR) Variability: Moderate (6-25 bmp) (130) Presentation: Vertex - Lan Score Lan Score Cervix Position: Midposition Lan Score Consistency: Soft Lan Score Effacement: 51-70% Lan Score Infant's Station: -2 - Exam General: Alert, Oriented, Cooperative Lungs: Clear to Auscultation, Normal Respiratory Effort. No: Decreased Breath Sounds Cardiovascular: Regular Rate, Regular Rhythm, Normal S1, Normal S2 GI/Abdominal Exam: Soft, Non-Tender Rectal Exam: Deferred Genitourinary: Normal external exam, Cervical dilitation, Cervical fluid (SROM at 0600) Extremities: Normal Inspection, Normal Range of Motion, Non-Tender, No Pedal Edema Skin: Warm, Dry, Intact Neurological: Cranial Nerves Intact, Strength Equal Bilateral, Normal Gait, Normal Speech, Normal Tone, Sensation Intact Psychiatric: Alert, Normal Affect, Normal Mood - Patient Data Lab Results Last 24 hrs: Laboratory Results - last 24 hr 12/29/18 12/29/18 Range/Units 07:50 10:18 WBC 9.48 (4.0-11.0) K/uL RBC 3.93 L (4.30-5.90) M/uL Hgb 11.3 L (12.0-16.0) g/dL Hct 34.4 L (36.0-46.0) % MCV 87.5 (80.0-98.0) fL MCH 28.8 (27.0-32.0) pg MCHC 32.8 (31.0-37.0) g/dL RDW Std Deviation 49.0 (28.0-62.0) fl RDW Coeff of Tamiko 15 (11.0-15.0) % Plt Count 215 (150-400) K/uL MPV 11.30 (7.40-12.00) fL Nucleated RBC % 0.0 /100WBC Nucleated RBCs # 0 K/uL Membrane Rupture POSITIVE Result Diagrams: 12/29/18 10:18 - Problem List (1) Advanced maternal age during in third trimester SNOMED Code(s): 869323413, [id number] ICD Code: SWI3831 - Status: Acute Priority: High Current Visit: Yes Problem List Initiated/Reviewed/Updated: Yes Orders Last 24hrs: Active Orders 24 hr Category Date Time Status Patient Status [ADT] Routine ADT 12/29/18 09:59 Active May Shower [RC] ASDIRECTED Care 12/29/18 09:59 Active Notify Provider [RC] PRN Care 12/29/18 09:59 Active Up ad Radha [RC] ASDIRECTED Care 12/29/18 07:33 Active Vital Signs [RC] PER UNIT ROUTINE Care 12/29/18 07:33 Active TYPE AND SCREEN [BBK] Routine Lab 12/29/18 10:18 Received Carboprost Tromethamine [Hemabate DS] Med 12/29/18 09:59 Active 250 mcg IM ASDIRECTED PRN Lactated Ringers [Ringers, Lactated] 1,000 ml Med 12/29/18 10:00 Active IV ASDIRECTED Lidocaine 1% [Xylocaine 1%] Med 12/29/18 09:59 Active 50 ml INJECT ONETIME PRN Methylergonovine [Methergine] Med 12/29/18 09:59 Active 0.2 mg IM ASDIRECTED PRN Nalbuphine [Nubain] Med 12/29/18 09:59 Active 10 mg IVPUSH Q1H PRN Oxytocin/0.9 % Sodium Chloride [Oxytocin 30 Unit/500 ML Med 12/29/18 10:00 Active -NS] 30 unit in 500 ml IV TITRATE Sodium Chloride 0.9% [Normal Saline] Med 12/29/18 09:59 Active 10 ml IV ASDIRECTED PRN Sodium Chloride 0.9% [Saline Flush] Med 12/29/18 09:59 Active 10 ml FLUSH ASDIRECTED PRN Sodium Chloride 0.9% [Saline Flush] Med 12/29/18 09:59 Active 2.5 ml FLUSH ASDIRECTED PRN Tranexamic Acid [Cyklokapron] 1,000 mg Med 12/29/18 09:59 Active Sodium Chloride 0.9% [Normal Saline] 100 ml IV ONETIME Water For Irrigation,Sterile [Sterile Water for Med 12/29/18 09:59 Active Irrigation] 1,000 ml IRR ASDIRECTED PRN miSOPROStol [Cytotec] Med 12/29/18 09:59 Active 200 mcg PO ONETIME PRN Scalp Electrode [WOMSER] Per Unit Routine Oth 12/29/18 09:59 Ordered Peripheral IV Insertion Adult [OM.PC] Routine Oth 12/29/18 09:59 Ordered Resuscitation Status Routine Resus Stat 12/29/18 07:33 Ordered Medication Orders Carboprost Tromethamine (Hemabate Ds) 250 mcg IM ASDIRECTED PRN PRN Reason: Post Hemorrhage Tranexamic Acid 1,000 mg/ (Sodium Chloride) 110 mls @ 660 mls/hr IV ONETIME PRN PRN Reason: Bleeding Lactated Ringer's (Ringers, Lactated) 1,000 mls @ 150 mls/hr IV ASDIRECTED W[facility]OME Oxytocin/Sodium Chloride (Oxytocin 30 Unit/500 Ml-Ns) 30 unit in 500 mls @ 999 mls/hr IV TITRATE WINSOME Lidocaine HCl (Xylocaine 1%) 50 ml INJECT ONETIME PRN PRN Reason: Laceration repair Methylergonovine Maleate (Methergine) 0.2 mg IM ASDIRECTED PRN PRN Reason: Post Hemorrhage Misoprostol (Cytotec) 200 mcg PO ONETIME PRN PRN Reason: Post Hemorrhage Nalbuphine HCl (Nubain) 10 mg IVPUSH Q1H PRN PRN Reason: Pain (severe 7-10) Sodium Chloride (Saline Flush) 10 ml FLUSH ASDIRECTED PRN PRN Reason: Keep Vein Open Sodium Chloride (Saline Flush) 2.5 ml FLUSH ASDIRECTED PRN PRN Reason: Keep Vein Open Sodium Chloride (Normal Saline) 10 ml IV ASDIRECTED PRN PRN Reason: IV Use Sterile Water (Sterile Water For Irrigation) 1,000 ml IRR ASDIRECTED PRN PRN Reason: delivery Assessment/Plan Comment:: SROM A: 38yo EDC 01/10/2019 38 2/7wks, AMA 38yo, SROM at 0630, A+, RI, GBS neg VE 60/-2 clear fluid P: Admit, cytotec to pitocin, anticipate . Dr Patterson updated
[2018-12-29] MEDS ORDERED: Misoprostol 25 MCG (1/4 of 100 MCG) Tab VAG ONE (14:30)
[2018-12-29] MEDS ORDERED: fentaNYL 100 MCG/2 ML SDV ONE ×2 (19:49→23:46)
[2018-12-29] MEDS ORDERED: Ropivacaine HCl/PF 100 ML ONE (19:49)
[2018-12-29] MEDS: Lactated Ringers 1,000 ML IV SCH ×2 (20:05→21:57)
--- NOTE | 2018-12-29 20:09 | PCM.PREANE ---
Preanesthetic Assessment - Anesthesia/Transfusion/Family Hx Anesthesia History: Prior Anesthesia Without Reaction Family History of Anesthesia Reaction: Yes Transfusion History: No Prior Transfusion(s) - Physical Assessment NPO Status Date: 12/29/18 Height: 1.65 m Weight: 95.708 kg ASA Class: 1 Mental Status: Alert & Oriented x3 Dentition: Reports: Normal Dentition - Lab Values: Laboratory Last Values WBC 9.48 K/uL (4.0-11.0) 12/29/18 10:18 RBC 3.93 M/uL (4.30-5.90) L 12/29/18 10:18 Hgb 11.3 g/dL (12.0-16.0) L 12/29/18 10:18 Hct 34.4 % (36.0-46.0) L 12/29/18 10:18 MCV 87.5 fL (80.0-98.0) 12/29/18 10:18 MCH 28.8 pg (27.0-32.0) 12/29/18 10:18 MCHC 32.8 g/dL (31.0-37.0) 12/29/18 10:18 RDW Std Deviation 49.0 fl (28.0-62.0) 12/29/18 10:18 RDW Coeff of Tamiko 15 % (11.0-15.0) 12/29/18 10:18 Plt Count 215 K/uL (150-400) 12/29/18 10:18 MPV 11.30 fL (7.40-12.00) 12/29/18 10:18 Nucleated RBC % 0.0 /100WBC 12/29/18 10:18 Nucleated RBCs # 0 K/uL 12/29/18 10:18 Membrane Rupture POSITIVE 12/29/18 07:50 Blood Type A POSITIVE 12/29/18 10:18 Antibody Screen NEGATIVE 12/29/18 10:18 - Allergies Allergies/Adverse Reactions: Allergies Allergy/AdvReac Type Severity Reaction Status Date / Time No Known Allergies Allergy Verified 07/23/18 16:35 - Acknowledgements Anesthesia Type Planned: Epidural Pt an Appropriate Candidate for the Planned Anesthesia: Yes Alternatives and Risks of Anesthesia Discussed w Pt/Guardian: Yes Pt/Guardian Understands and Agrees with Anesthesia Plan: Yes PreAnesthesia Questionnaire - Past Health History Medical/Surgical History: Denies Medical/Surgical History 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 CONGRESSIONAL AIDE History: Reports: , Spontaneous Psychiatric History: Reports: Depression - Infectious Disease History Infectious Disease History: Reports: Chicken Pox - Past Surgical History HEENT Surgical History: Reports: Oral Surgery - SUBSTANCE USE Smoking Status *Q: Never Smoker Tobacco Use Within Last Twelve Months: No Second Hand Smoke Exposure: No Recreational Drug Use History: No - HOME MEDS Home Medications: Home Meds Pnv No.95/Ferrous Fum/Folic AC [ Caplet] 1 tab PO DAILY 12/29/18 [ History] - CURRENT (IN HOUSE) MEDS Current Meds: Current Medications Carboprost Tromethamine (Hemabate Ds) 250 mcg IM ASDIRECTED PRN PRN Reason: Post Hemorrhage Tranexamic Acid 1,000 mg/ (Sodium Chloride) 110 mls @ 660 mls/hr IV ONETIME PRN PRN Reason: Bleeding Lactated Ringer's (Ringers, Lactated) 1,000 mls @ 150 mls/hr IV ASDIRECTED WINSOME Oxytocin/Sodium Chloride (Oxytocin 30 Unit/500 Ml-Ns) 30 unit in 500 mls @ 999 mls/hr IV TITRATE WINSOME Lidocaine HCl (Xylocaine 1%) 50 ml INJECT ONETIME PRN PRN Reason: Laceration repair Methylergonovine Maleate (Methergine) 0.2 mg IM ASDIRECTED PRN PRN Reason: Post Hemorrhage Misoprostol (Cytotec) 200 mcg PO ONETIME PRN PRN Reason: Post Hemorrhage Nalbuphine HCl (Nubain) 10 mg IVPUSH Q1H PRN PRN Reason: Pain (severe 7-10) Sodium Chloride (Saline Flush) 10 ml FLUSH ASDIRECTED PRN PRN Reason: Keep Vein Open Sodium Chloride (Saline Flush) 2.5 ml FLUSH ASDIRECTED PRN PRN Reason: Keep Vein Open Sodium Chloride (Normal Saline) 10 ml IV ASDIRECTED PRN PRN Reason: IV Use Sterile Water (Sterile Water For Irrigation) 1,000 ml IRR ASDIRECTED PRN PRN Reason: delivery Discontinued Medications Fentanyl (Sublimaze) Confirm Administered Dose 100 mcg .ROUTE .STK-MED ONE Stop: 12/29/18 19:50 Ropivacaine (Naropin 0.2%) Confirm Administered Dose 100 mls @ as directed .ROUTE .STK-MED ONE Stop: 12/29/18 19:50 Misoprostol (Cytotec) 50 mcg PO ONETIME ONE Stop: 12/29/18 10:31 Last Admin: 12/29/18 10:27 Dose: 50 mcg Misoprostol (Cytotec) 25 mcg PO ONETIME ONE Stop: 12/29/18 14:31 Last Admin: 12/29/18 14:42 Dose: 25 mcg Misoprostol (Cytotec) 25 mcg VAG ONETIME ONE Stop: 12/29/18 14:31 Last Admin: 12/29/18 14:42 Dose: 25 mcg
--- NOTE | 2018-12-29 20:13 | PCM.PRNOTE ---
- Free Text/Narrative Note: Anes Note 1950 Patient requests epidural for L&D. Sitting position. Level L3-L4 midline approach. Epidural space easily achieved using MICHELLE technique. MICHELLE at 7 cm. Epidural cath threaded to 12 cm velvet and secured with clear adhesive dressing. 2000 Test 3 cc 1.5% lido with epi negative. Load 10 cc 0.2% ropivicaine with 1 mcg cc fentanyl in slow divided doses Pump started wtih same solution at 8 cc hr with 6 cc q 20 min prn bolus. Stephany well. Time with patient Darinel Fountain CRNA
--- NOTE | 2018-12-29 20:55 | PCM.PRNOTE ---
- Free Text/Narrative Note: Aness NOte Patient reports incomplete analgesia on left side. This has happened with 2 prior epidurals. I removed the epidural catheter eaily and complete. Under sterile technique a new epidural catheter was placed at level L2-L3, midline approach. Bet pre X3. Local 1% lido Epidural space easily achieved at 5 cm using MICHELLE technique. Epidural cath threaded 5 cm with ease. Sterile adhesive dressing applied. Test dose 2044. 3 cc 1.5% lido with epi negative. Load 10 cc 0.2% ropivicaine with 1 mcg cc fentanyl given in slow divided doses. Pumps restarted wtih same solution at 8 cc hr with 6 cc q 20 min prn bolus. Stephany well. Time with patient Darinel Fountain CRNA
[2018-12-29] MEDS ORDERED: Ondansetron 4 MG/2 ML SDV ONE (22:23)
[2018-12-29] MEDS ORDERED: Ondansetron 4 MG/2 ML SDV IVPUSH PRN (22:37)
--- NOTE | 2018-12-29 23:52 | PCM.PRNOTE ---
- Free Text/Narrative Note: Anes Note I was requested to administer a top up dose in preparation fro delivery. Epidural dosed wtih 2 cc fentanyl plus 5 cc 2% lido with epi. Time with patient [id number] Darinel Fountain CRNA
--- NOTE | 2018-12-30 00:31 | PCM.DEL ---
L & D Note - General Info Date of Service: 12/30/18 Mother's Due Date: 01/10/19 - Delivery Note Labor: Augmented by Oxytocin Cervical Ripening Method: Oxytocin Delivery Outcome: Livebirth Delivery Method: Spontaneous Vaginal Delivery-Single Delivery Mode: Spontaneous Presentation: Vertex Nuchal Cord: None Anesthesia Type: Epidural Amniotic Fluid Description: Clear Episiotomy Type: None Laceration: None Placenta: Intact, Spontaneous Cord: 3 Vessels Estimated Blood Loss: 100 Resuscitation Needed: No : Stimulated Score 1 min: 8 Score 5 min: 9 Second Stage Interventions: Reports: Pushing, Pulls Own Legs Back - General Info Date of Service: 12/30/18 Admission Dx/Problem (Free Text): Patient Status Order with Admit Dx/Problem 12/29/18 07:20 Patient Status [ADT] Routine 12/29/18 09:59 Patient Status [ADT] Routine Admission Diagnosis/Problem Admission Diagnosis/Problem - planned 12/29/18 11:26 38yo EDC 01/10/2019 38 2/7wks, AMA 38yo, SROM at 0630, A+, RI, GBS neg. 12/29/18 11:34 Functional Status: Reports: Pain Controlled - Review of Systems General: Reports: No Symptoms HEENT: Reports: No Symptoms Pulmonary: Reports: No Symptoms Cardiovascular: Reports: No Symptoms Gastrointestinal: Reports: No Symptoms Genitourinary: Reports: No Symptoms Musculoskeletal: Reports: No Symptoms Skin: Reports: No Symptoms Neurological: Reports: No Symptoms Psychiatric: Reports: No Symptoms - Patient Data Weight - Most Recent: 95.708 kg Lab Results Last 24 Hours: Laboratory Results - last 24 hr 12/29/18 12/29/18 12/29/18 Range/Units 07:50 10:18 10:18 WBC 9.48 (4.0-11.0) K/uL RBC 3.93 L (4.30-5.90) M/uL Hgb 11.3 L (12.0-16.0) g/dL Hct 34.4 L (36.0-46.0) % MCV 87.5 (80.0-98.0) fL MCH 28.8 (27.0-32.0) pg MCHC 32.8 (31.0-37.0) g/dL RDW Std Deviation 49.0 (28.0-62.0) fl RDW Coeff of Tamiko 15 (11.0-15.0) % Plt Count 215 (150-400) K/uL MPV 11.30 (7.40-12.00) fL Nucleated RBC % 0.0 /100WBC Nucleated RBCs # 0 K/uL Membrane Rupture POSITIVE Blood Type A POSITIVE Antibody Screen NEGATIVE Med Orders - Current: Current Medications Carboprost Tromethamine (Hemabate Ds) 250 mcg IM ASDIRECTED PRN PRN Reason: Post Hemorrhage Tranexamic Acid 1,000 mg/ (Sodium Chloride) 110 mls @ 660 mls/hr IV ONETIME PRN PRN Reason: Bleeding Lactated Ringer's (Ringers, Lactated) 1,000 mls @ 150 mls/hr IV ASDIRECTED WINSOME Last Admin: 12/29/18 21:57 Dose: 150 mls/hr Oxytocin/Sodium Chloride (Oxytocin 30 Unit/500 Ml-Ns) 30 unit in 500 mls @ 999 mls/hr IV TITRATE WINSOME Oxytocin/Sodium Chloride (Oxytocin 30 Unit/500 Ml-Ns) 30 unit in 500 mls @ 2 mls/hr IV TITRATE WINSOME; Protocol Last Infusion: 12/29/18 22:59 Dose: 2 munits/min, 2 mls/hr Lidocaine HCl (Xylocaine 1%) 50 ml INJECT ONETIME PRN PRN Reason: Laceration repair Methylergonovine Maleate (Methergine) 0.2 mg IM ASDIRECTED PRN PRN Reason: Post Hemorrhage Misoprostol (Cytotec) 200 mcg PO ONETIME PRN PRN Reason: Post Hemorrhage Nalbuphine HCl (Nubain) 10 mg IVPUSH Q1H PRN PRN Reason: Pain (severe 7-10) Ondansetron HCl (Zofran) 4 mg IVPUSH Q4H PRN PRN Reason: Nausea/Vomiting Last Admin: 12/29/18 22:44 Dose: 4 mg Sodium Chloride (Saline Flush) 10 ml FLUSH ASDIRECTED PRN PRN Reason: Keep Vein Open Sodium Chloride (Saline Flush) 2.5 ml FLUSH ASDIRECTED PRN PRN Reason: Keep Vein Open Sodium Chloride (Normal Saline) 10 ml IV ASDIRECTED PRN PRN Reason: IV Use Sterile Water (Sterile Water For Irrigation) 1,000 ml IRR ASDIRECTED PRN PRN Reason: delivery Discontinued Medications Fentanyl (Sublimaze) Confirm Administered Dose 100 mcg .ROUTE .STK-MED ONE Stop: 12/29/18 19:50 Fentanyl (Sublimaze) Confirm Administered Dose 100 mcg .ROUTE .STK-MED ONE Stop: 12/29/18 23:47 Ropivacaine (Naropin 0.2%) Confirm Administered Dose 100 mls @ as directed .ROUTE .STK-MED ONE Stop: 12/29/18 19:50 Misoprostol (Cytotec) 50 mcg PO ONETIME ONE Stop: 12/29/18 10:31 Last Admin: 12/29/18 10:27 Dose: 50 mcg Misoprostol (Cytotec) 25 mcg PO ONETIME ONE Stop: 12/29/18 14:31 Last Admin: 12/29/18 14:42 Dose: 25 mcg Misoprostol (Cytotec) 25 mcg VAG ONETIME ONE Stop: 12/29/18 14:31 Last Admin: 12/29/18 14:42 Dose: 25 mcg Ondansetron HCl (Zofran) Confirm Administered Dose 4 mg .ROUTE .STK-MED ONE Stop: 12/29/18 22:24 - Exam General: Alert, Oriented, Cooperative, No Acute Distress Lungs: Normal Respiratory Effort GI/Abdominal Exam: Soft, Non-Tender (Female) Exam: Normal External Exam, Normal Bimanual Exam, Vaginal Bleeding. No: Vaginal Lesions, Vaginal Tears Back Exam: Normal Inspection Extremities: Non-Tender, No Pedal Edema Skin: Warm, Dry, Intact Wound/Incisions: Healing Well Neurological: No New Focal Deficit, Normal Speech, Normal Tone, Strength Equal Bilateral Psy/Mental Status: Alert, Normal Affect, Normal Mood - Problem List & Annotations (1) Advanced maternal age during in third trimester SNOMED Code(s): 250629309, 015802295 Code(s): YUI3416 - Status: Acute Priority: High Current Visit: Yes (2) (spontaneous vaginal delivery) SNOMED Code(s): 146259153 Code(s): O80 - ENCOUNTER FOR FULL-TERM UNCOMPLICATED DELIVERY Status: Acute Priority: High Current Visit: No - Problem List Review Problem List Initiated/Reviewed/Updated: Yes - My Orders Last 24 Hours: My Active Orders 12/29/18 09:59 Patient Status [ADT] Routine May Shower [RC] ASDIRECTED Notify Provider [RC] PRN Carboprost Tromethamine [Hemabate DS] 250 mcg IM ASDIRECTED PRN Lidocaine 1% [Xylocaine 1%] 50 ml INJECT ONETIME PRN Methylergonovine [Methergine] 0.2 mg IM ASDIRECTED PRN Nalbuphine [Nubain] 10 mg IVPUSH Q1H PRN Sodium Chloride 0.9% [Normal Saline] 10 ml IV ASDIRECTED PRN Sodium Chloride 0.9% [Saline Flush] 10 ml FLUSH ASDIRECTED PRN Sodium Chloride 0.9% [Saline Flush] 2.5 ml FLUSH ASDIRECTED PRN Tranexamic Acid [Cyklokapron] 1,000 mg Sodium Chloride 0.9% [Normal Saline] 100 ml IV ONETIME Water For Irrigation,Sterile [Sterile Water for Irrigation] 1,000 ml IRR ASDIRECTED PRN miSOPROStol [Cytotec] 200 mcg PO ONETIME PRN Scalp Electrode [WOMSER] Per Unit Routine Peripheral IV Insertion Adult [OM.PC] Routine 12/29/18 10:00 Lactated Ringers [Ringers, Lactated] 1,000 ml IV ASDIRECTED Oxytocin/0.9 % Sodium Chloride [Oxytocin 30 Unit/500 ML-NS] 30 unit in 500 ml IV TITRATE 12/29/18 22:37 Ondansetron [Zofran] 4 mg IVPUSH Q4H PRN - Plan Plan:: SROM A: 38yo EDC 01/10/2019 38 2/7wks, AMA 38yo, SROM at 0630, A+, RI, GBS neg VE 60/-2 clear fluid P: Admit, cytotec to pitocin, anticipate . Dr Patterson updated Delivery A: of viable male, APGARS 8/9, WT: 7lb 8oz, EBL 100cc, Intact. Stable P: Routine pp plan of care
[2018-12-30] MEDS ORDERED: oxyCODONE 5 MG Tab PO PRN (00:32)
[2018-12-30] MEDS ORDERED: Witch Hazel Medicated Pads 40/Jar TOP PRN (00:32)
[2018-12-30] MEDS ORDERED: Docusate Sodium 100 MG Cap PO PRN (00:32)
[2018-12-30] MEDS ORDERED: Ibuprofen 400 MG Tab PO PRN (00:32)
[2018-12-30] MEDS ORDERED: Benzocaine/Menthol 20%-0.5% Spray 78 GM Cannister TOP PRN (00:32)
[2018-12-30] MEDS ORDERED: Lanolin 100% Cream 7 GM Tube TOP PRN (00:32)
[2018-12-30] MEDS ORDERED: Acetaminophen 500 MG Tab PO PRN ×2 (00:32)
[2018-12-30] MEDS ORDERED: Bisacodyl 10 MG Supp RECTAL PRN (00:32)
[2018-12-30] MEDS: Ibuprofen 800 MG Tab PO PRN ×3 (02:37→22:20)
--- NOTE | 2018-12-30 10:27 | PCM48HPAN ---
Post Anesthesia Note - EVALUATION WITHIN 48HRS OF ANESTHETIC Vital Signs in Normal Range: Yes Patient Participated in Evaluation: Yes Respiratory Function Stable: Yes Airway Patent: Yes Cardiovascular Function Stable: Yes Hydration Status Stable: Yes Pain Control Satisfactory: Yes Nausea and Vomiting Control Satisfactory: Yes Mental Status Recovered: Yes Vital Signs: Last Vital Signs Temp 36.4 C 12/30/18 08:20 Pulse 84 12/30/18 08:20 Resp 16 12/30/18 08:20 BP 122/56 L 12/30/18 08:20 Pulse Ox 97 12/30/18 08:20
--- NOTE | 2018-12-30 10:27 | PCM.POSTAN ---
POST ANESTHESIA ASSESSMENT - MENTAL STATUS Mental Status: Alert - VITAL SIGNS Vital Signs: Last Vital Signs Temp 36.4 C 12/30/18 08:20 Pulse 84 12/30/18 08:20 Resp 16 12/30/18 08:20 BP 122/56 L 12/30/18 08:20 Pulse Ox 97 12/30/18 08:20 - RESPIRATORY Respiratory Status: Respiratory Rate WNL - CARDIOVASCULAR CV Status: Pulse Rate WNL - GASTROINTESTINAL GI Status: No Symptoms - POST OP HYDRATION Hydration Status: Adequate & Stable
--- NOTE | 2018-12-30 10:42 | PCM.PNPP ---
- General Info Date of Service: 12/30/18 Functional Status: Reports: Pain Controlled - Review of Systems General: Reports: No Symptoms HEENT: Reports: No Symptoms Pulmonary: Reports: No Symptoms Cardiovascular: Reports: No Symptoms Gastrointestinal: Reports: No Symptoms Genitourinary: Reports: No Symptoms Musculoskeletal: Reports: No Symptoms Skin: Reports: No Symptoms Neurological: Reports: No Symptoms Psychiatric: Reports: No Symptoms - General Info Date of Service: 12/30/18 - Patient Data Vital Signs - Most Recent: Last Vital Signs Temp 36.4 C 12/30/18 08:20 Pulse 84 12/30/18 08:20 Resp 16 12/30/18 08:20 BP 122/56 L 12/30/18 08:20 Pulse Ox 97 12/30/18 08:20 Weight - Most Recent: 95.708 kg Lab Results - Last 24 Hours: Laboratory Results - last 24 hr 12/29/18 12/29/18 Range/Units 10:18 10:18 WBC 9.48 (4.0-11.0) K/uL RBC 3.93 L (4.30-5.90) M/uL Hgb 11.3 L (12.0-16.0) g/dL Hct 34.4 L (36.0-46.0) % MCV 87.5 (80.0-98.0) fL MCH 28.8 (27.0-32.0) pg MCHC 32.8 (31.0-37.0) g/dL RDW Std Deviation 49.0 (28.0-62.0) fl RDW Coeff of Tamiko 15 (11.0-15.0) % Plt Count 215 (150-400) K/uL MPV 11.30 (7.40-12.00) fL Nucleated RBC % 0.0 /100WBC Nucleated RBCs # 0 K/uL Blood Type A POSITIVE Antibody Screen NEGATIVE Med Orders - Current: Current Medications Acetaminophen (Tylenol Extra Strength) 500 mg PO Q4H PRN PRN Reason: Pain Acetaminophen (Tylenol Extra Strength) 1,000 mg PO Q4H PRN PRN Reason: Pain Last Admin: 12/30/18 08:13 Dose: 1,000 mg Benzocaine/Menthol (Dermoplast Pain Relief 20%-0.5% [place]) 78 gm TOP ASDIRECTED PRN PRN Reason: Perineal Comfort Measure Last Admin: 12/30/18 02:39 Dose: 1 applic Bisacodyl (Dulcolax) 10 mg RECTAL ONETIME PRN PRN Reason: Constipation Docusate Sodium (Colace) 100 mg PO BID PRN PRN Reason: Constipation Emollient Ointment (Lansinoh Hpa) 0 gm TOP ASDIRECTED PRN PRN Reason: Sore Nipples Last Admin: 12/30/18 02:38 Dose: 1 applic Ibuprofen (Motrin) 400 mg PO Q4H PRN PRN Reason: Pain Ibuprofen (Motrin) 800 mg PO Q6H PRN PRN Reason: Pain Last Admin: 12/30/18 02:37 Dose: 800 mg Oxycodone HCl (Oxycodone) 5 mg PO Q2H PRN PRN Reason: Pain Witch Alize (Tucks) 1 pad TOP ASDIRECTED PRN PRN Reason: comfort care Discontinued Medications Carboprost Tromethamine (Hemabate Ds) 250 mcg IM ASDIRECTED PRN PRN Reason: Post Hemorrhage Fentanyl (Sublimaze) Confirm Administered Dose 100 mcg .ROUTE .STK-MED ONE Stop: 12/29/18 19:50 Fentanyl (Sublimaze) Confirm Administered Dose 100 mcg .ROUTE .STK-MED ONE Stop: 12/29/18 23:47 Tranexamic Acid 1,000 mg/ (Sodium Chloride) 110 mls @ 660 mls/hr IV ONETIME PRN PRN Reason: Bleeding Lactated Ringer's (Ringers, Lactated) 1,000 mls @ 150 mls/hr IV ASDIRECTED WINSOME Last Admin: 12/29/18 21:57 Dose: 150 mls/hr Oxytocin/Sodium Chloride (Oxytocin 30 Unit/500 Ml-Ns) 30 unit in 500 mls @ 999 mls/hr IV TITRATE WINSOME Ropivacaine (Naropin 0.2%) Confirm Administered Dose 100 mls @ as directed .ROUTE .STK-MED ONE Stop: 12/29/18 19:50 Oxytocin/Sodium Chloride (Oxytocin 30 Unit/500 Ml-Ns) 30 unit in 500 mls @ 2 mls/hr IV TITRATE WINSOME; Protocol Last Infusion: 12/29/18 22:59 Dose: 2 munits/min, 2 mls/hr Lidocaine HCl (Xylocaine 1%) 50 ml INJECT ONETIME PRN PRN Reason: Laceration repair Methylergonovine Maleate (Methergine) 0.2 mg IM ASDIRECTED PRN PRN Reason: Post Hemorrhage Misoprostol (Cytotec) 200 mcg PO ONETIME PRN PRN Reason: Post Hemorrhage Misoprostol (Cytotec) 50 mcg PO ONETIME ONE Stop: 12/29/18 10:31 Last Admin: 12/29/18 10:27 Dose: 50 mcg Misoprostol (Cytotec) 25 mcg PO ONETIME ONE Stop: 12/29/18 14:31 Last Admin: 12/29/18 14:42 Dose: 25 mcg Misoprostol (Cytotec) 25 mcg VAG ONETIME ONE Stop: 12/29/18 14:31 Last Admin: 12/29/18 14:42 Dose: 25 mcg Nalbuphine HCl (Nubain) 10 mg IVPUSH Q1H PRN PRN Reason: Pain (severe 7-10) Ondansetron HCl (Zofran) Confirm Administered Dose 4 mg .ROUTE .STK-MED ONE Stop: 12/29/18 22:24 Ondansetron HCl (Zofran) 4 mg IVPUSH Q4H PRN PRN Reason: Nausea/Vomiting Last Admin: 12/29/18 22:44 Dose: 4 mg Sodium Chloride (Saline Flush) 10 ml FLUSH ASDIRECTED PRN PRN Reason: Keep Vein Open Sodium Chloride (Saline Flush) 2.5 ml FLUSH ASDIRECTED PRN PRN Reason: Keep Vein Open Sodium Chloride (Normal Saline) 10 ml IV ASDIRECTED PRN PRN Reason: IV Use Sterile Water (Sterile Water For Irrigation) 1,000 ml IRR ASDIRECTED PRN PRN Reason: delivery - Infant Interaction Infant Disposition, : in Room with Family Interaction: Holding Infant Feeding: Attempted ; Nursed Fair/Poor Support Person: - Recovery Exam Fundal Tone: Firm Fundal Level: At Umbilicus Fundal Placement: Midline Lochia Amount: Scant Lochia Color: Rubra/Red Perineum Description: Intact, Minimal Bruising/Swelling Bladder Status: Voiding Urinary Elimination: Voided - Exam General: Alert, Oriented HEENT: Pupils Equal Neck: Supple Lungs: Clear to Auscultation, Normal Respiratory Effort Cardiovascular: Regular Rate, Regular Rhythm GI/Abdominal Exam: Normal Bowel Sounds, Soft, Non-Tender, No Organomegaly, No Distention, No Abnormal Bruit, No Mass, Pelvis Stable Extremities: Normal Inspection, Normal Range of Motion, Non-Tender, No Pedal Edema, Normal Capillary Refill Skin: Warm, Dry, Intact Wound/Incisions: Healing Well Neurological: No New Focal Deficit Psy/Mental Status: Alert, Normal Affect, Normal Mood - Problem List Review Problem List Initiated/Reviewed/Updated: Yes - Assessment Assessment:: S/P doing well. - Plan Plan:: SROM A: 38yo EDC 01/10/2019 38 2/7wks, AMA 38yo, SROM at 0630, A+, RI, GBS neg VE 60/-2 clear fluid P: Admit, cytotec to pitocin, anticipate . Dr Patterson updated Delivery A: of viable male, APGARS 8/9, WT: 7lb 8oz, EBL 100cc, Intact. Stable P: Routine pp plan of care
[2018-12-31 07:34] VITALS: BP 99/62
--- NOTE | 2018-12-31 08:31 | PCM.PNPP ---
- General Info Date of Service: 12/31/18 Functional Status: Reports: Pain Controlled - Review of Systems General: Reports: No Symptoms HEENT: Reports: No Symptoms Pulmonary: Reports: No Symptoms Cardiovascular: Reports: No Symptoms Gastrointestinal: Reports: No Symptoms Genitourinary: Reports: No Symptoms Musculoskeletal: Reports: No Symptoms Skin: Reports: No Symptoms Neurological: Reports: No Symptoms Psychiatric: Reports: No Symptoms - General Info Date of Service: 12/31/18 - Patient Data Vital Signs - Most Recent: Last Vital Signs Temp 36.4 C 12/31/18 07:33 Pulse 84 12/31/18 07:33 Resp 12 12/31/18 07:33 BP 99/62 12/31/18 07:33 Pulse Ox 98 12/31/18 07:33 Weight - Most Recent: 95.708 kg Med Orders - Current: Current Medications Acetaminophen (Tylenol Extra Strength) 500 mg PO Q4H PRN PRN Reason: Pain Acetaminophen (Tylenol Extra Strength) 1,000 mg PO Q4H PRN PRN Reason: Pain Last Admin: 12/30/18 08:13 Dose: 1,000 mg Benzocaine/Menthol (Dermoplast Pain Relief 20%-0.5% [place]) 78 gm TOP ASDIRECTED PRN PRN Reason: Perineal Comfort Measure Last Admin: 12/30/18 02:39 Dose: 1 applic Bisacodyl (Dulcolax) 10 mg RECTAL ONETIME PRN PRN Reason: Constipation Docusate Sodium (Colace) 100 mg PO BID PRN PRN Reason: Constipation Emollient Ointment (Lansinoh Hpa) 0 gm TOP ASDIRECTED PRN PRN Reason: Sore Nipples Last Admin: 12/30/18 02:38 Dose: 1 applic Ibuprofen (Motrin) 400 mg PO Q4H PRN PRN Reason: Pain Ibuprofen (Motrin) 800 mg PO Q6H PRN PRN Reason: Pain Last Admin: 12/30/18 22:20 Dose: 800 mg Oxycodone HCl (Oxycodone) 5 mg PO Q2H PRN PRN Reason: Pain Witch Alize (Tucks) 1 pad TOP ASDIRECTED PRN PRN Reason: comfort care Discontinued Medications Carboprost Tromethamine (Hemabate Ds) 250 mcg IM ASDIRECTED PRN PRN Reason: Post Hemorrhage Fentanyl (Sublimaze) Confirm Administered Dose 100 mcg .ROUTE .[facility] ONE Stop: 12/29/18 19:50 Last Admin: 12/30/18 11:07 Dose: Not Given Fentanyl (Sublimaze) Confirm Administered Dose 100 mcg .ROUTE .[facility] ONE Stop: 12/29/18 23:47 Tranexamic Acid 1,000 mg/ (Sodium Chloride) 110 mls @ 660 mls/hr IV ONETIME PRN PRN Reason: Bleeding Lactated Ringer's (Ringers, Lactated) 1,000 mls @ 150 mls/hr IV ASDIRECTED WINSOME Last Admin: 12/29/18 21:57 Dose: 150 mls/hr Oxytocin/Sodium Chloride (Oxytocin 30 Unit/500 Ml-Ns) 30 unit in 500 mls @ 999 mls/hr IV TITRATE WINSOME Ropivacaine (Naropin 0.2%) Confirm Administered Dose 100 mls @ as directed .ROUTE .[facility] ONE Stop: 12/29/18 19:50 Last Admin: 12/30/18 11:07 Dose: Not Given Oxytocin/Sodium Chloride (Oxytocin 30 Unit/500 Ml-Ns) 30 unit in 500 mls @ 2 mls/hr IV TITRATE WINSOME; Protocol Last Infusion: 12/29/18 22:59 Dose: 2 munits/min, 2 mls/hr Lidocaine HCl (Xylocaine 1%) 50 ml INJECT ONETIME PRN PRN Reason: Laceration repair Methylergonovine Maleate (Methergine) 0.2 mg IM ASDIRECTED PRN PRN Reason: Post Hemorrhage Misoprostol (Cytotec) 200 mcg PO ONETIME PRN PRN Reason: Post Hemorrhage Misoprostol (Cytotec) 50 mcg PO ONETIME ONE Stop: 12/29/18 10:31 Last Admin: 12/29/18 10:27 Dose: 50 mcg Misoprostol (Cytotec) 25 mcg PO ONETIME ONE Stop: 12/29/18 14:31 Last Admin: 12/29/18 14:42 Dose: 25 mcg Misoprostol (Cytotec) 25 mcg VAG ONETIME ONE Stop: 12/29/18 14:31 Last Admin: 12/29/18 14:42 Dose: 25 mcg Nalbuphine HCl (Nubain) 10 mg IVPUSH Q1H PRN PRN Reason: Pain (severe 7-10) Ondansetron HCl (Zofran) Confirm Administered Dose 4 mg .ROUTE .[facility] ONE Stop: 12/29/18 22:24 Last Admin: 12/30/18 11:07 Dose: Not Given Ondansetron HCl (Zofran) 4 mg IVPUSH Q4H PRN PRN Reason: Nausea/Vomiting Last Admin: 12/29/18 22:44 Dose: 4 mg Sodium Chloride (Saline Flush) 10 ml FLUSH ASDIRECTED PRN PRN Reason: Keep Vein Open Sodium Chloride (Saline Flush) 2.5 ml FLUSH ASDIRECTED PRN PRN Reason: Keep Vein Open Sodium Chloride (Normal Saline) 10 ml IV ASDIRECTED PRN PRN Reason: IV Use Sterile Water (Sterile Water For Irrigation) 1,000 ml IRR ASDIRECTED PRN PRN Reason: delivery - Infant Interaction Infant Disposition, : in Room with Family Infant Interaction: Holding Infant Feeding: Attempted ; Nursed Fair/Poor Support Person: - Recovery Exam Fundal Tone: Firm Fundal Level: At Umbilicus Fundal Placement: Midline Lochia Amount: Scant Lochia Color: Rubra/Red Perineum Description: Intact, Minimal Bruising/Swelling Episiotomy/Laceration: None Bladder Status: Voiding Urinary Elimination: Voided - Exam General: Alert, Oriented HEENT: Pupils Equal Neck: Supple Lungs: Clear to Auscultation, Normal Respiratory Effort Cardiovascular: Regular Rate, Regular Rhythm GI/Abdominal Exam: Normal Bowel Sounds, Soft, Non-Tender, No Organomegaly, No Distention, No Abnormal Bruit, No Mass, Pelvis Stable Extremities: Normal Inspection, Normal Range of Motion, Non-Tender, No Pedal Edema, Normal Capillary Refill Skin: Warm, Dry, Intact Wound/Incisions: Healing Well Neurological: No New Focal Deficit Psy/Mental Status: Alert, Normal Affect, Normal Mood - Problem List Review Problem List Initiated/Reviewed/Updated: Yes - Assessment Assessment:: S/P doing well. - Plan Plan:: SROM A: 38yo EDC 01/10/2019 38 2/7wks, AMA 38yo, SROM at 0630, A+, RI, GBS neg VE 60/-2 clear fluid P: Admit, cytotec to pitocin, anticipate . Dr Patterson updated Delivery A: of viable male, APGARS 8/9, WT: 7lb 8oz, EBL 100cc, Intact. Stable P: Routine pp plan of care
== END 2018-12-31 11:43 | disposition home or self-care (01) | DRG 560 ==
LOC: MW.OBCHECK 07:14 → MW.OB 07:18 → MW.OBCHECK 09:58 → MW.OB 09:59 → OBSVTOIN 12-30 00:02 → MW.OB 12-30 04:27
PROVIDERS: ADMIT Obstetrics & Gynecology; ATTEND Obstetrics & Gynecology
PROC: 10E0XZZ Delivery of Products of Conception, External Approach (ICD-10-PCS; principal; 2018-12-30)
PROC: 3E0R3BZ Introduction of Anesthetic Agent into Spinal Canal, Percutaneous Approach (ICD-10-PCS; 2018-12-30)
PROC: 00HU33Z Insertion of Infusion Device into Spinal Canal, Percutaneous Approach (ICD-10-PCS; 2018-12-30)
DX: O80 Encounter for full-term uncomplicated delivery (principal); Z3A.38 38 weeks gestation of pregnancy; Z37.0 Single live birth
CPT/HCPCS: 01967; 36415; 51702; 59025; 59409; 84112; 85027; 86850; 86900; 86901; A9270-GY; J2405; J2590; J2795; J3010; J7120